=== PATIENT | male | born 1995 | race Caucasian/White ===

== ENCOUNTER 2017-09-21 20:28 | Emergency (ER) | payer MEDICAID ==
[~2017-09-21] VITALS: Ht 154.9 cm; Wt 87.7 kg
[2017-09-21 20:35] VITALS: BP 137/76
[2017-09-21] MEDS ORDERED: SULF-59 PO (20:43)
[2017-09-21] MEDS ORDERED: POSA100T PO (20:43)
--- NOTE | 2017-09-21 21:13 | NUR ---
PT TAKEN TO CHAIR C
--- NOTE | 2017-09-21 21:43 | NUR ---
Dr. Navarro evaluating patient.
[2017-09-21 21:58] VITALS: BP 125/67
--- NOTE | 2017-09-21 21:58 | NUR ---
Patient discharged with v/s stable. Written and verbal after care instructions given and explained. Patient alert, oriented and verbalized understanding of instructions. Ambulatory with steady gait. All questions addressed prior to discharge. ID band removed. Patient advised to follow up with PMD. Rx of Amoxicillin and Phenergan DM given. Patient educated on indication of medication including possible reaction and side effects. Opportunity to ask questions provided and answered.
== END 2017-09-21 21:58 | disposition home or self-care (01) ==
LOC: MED 20:28
DX: H66.93 Otitis media, unspecified, bilateral (principal); R03.0 Elevated blood-pressure reading, without diagnosis of hypertension
CPT/HCPCS: 99283